=== PATIENT | male | born 1980 | race Two or more races ===

== ENCOUNTER → 2024-08-06 | Emergency (ER) | payer OTHER ==
[~2024-08-06] VITALS: Ht 170.2 cm; Wt 69.9 kg
[~2024-08-06] MED LIST: CEFTRIAXONE SODIUM 1,000 MG VIAL IM ONE; KETOROLAC TROMETHAMINE 30 MG VIAL IM ONE; MAXITROL EYE DRO5 ML OP; OFLOXACIN 0.3% 5ML DROPS (OTIC) OT ONE; TETRACAINE HCL 20 DR/ML DROPS OP ONE
[2024-08-06 11:19] LABS: HEMATOCRIT 46.5 % (39.0-48.0); HEMOGLOBIN 16.3 g/dL (13-16.00); MEAN CELL VOLUME 89.4 fL (80.0-100.00); MEAN CORPUSCULAR HEMOGLOBIN 31.3 pg (27.00-32.0); MEAN CORPUSCULAR HGB CONC 35.1 g/dl (32.0-36.0); PLATELET COUNT 169 K/uL (150-450); RED CELL DISTRIBUTION WIDTH 13.3 % (11.5-14.5)
== END | disposition home or self-care (01) ==
LOC: ER 09:03
PROVIDERS: General Practice
DX: R53.81 Other malaise (principal); J00 Acute nasopharyngitis [common cold]; Z20.822 Contact with and (suspected) exposure to COVID-19